=== PATIENT | female | born 1980 | race Caucasian/White ===

== ENCOUNTER 2019-06-10 17:30 | Emergency (ER) | payer BC, OTHER ==
--- NOTE | 2019-06-10 18:01 | PDOC ---
History of Present Illness - General Chief Complaint: Pain Stated Complaint: ABD PAIN Time Seen by Provider: 06/10/19 17:37 - History of Present Illness Initial Comments: 06/10/19 18:07 38f with pmh of c-sections presents to the ED with 2 hours of progressive onset LRQ abdominal pain associated with briefly feeling pale and diaphoretic. Pain is crampy 8/10 when walking, 5-6/10 at rest. No sexual relations for more than a year, LMP 2 weeks ago. Denies nausea, vomiting, chest pain, shortness of breath, constipation dysuria. Past History - Past Medical History Allergies/Adverse Reactions: Allergies Allergy/AdvReac Type Severity Reaction Status Date / Time amoxicillin [Amoxicillin] Allergy Intermediate Rash Verified 06/30/14 15:53 Home Medications: Ambulatory Orders NK [No Known Home Medication] 06/30/14 COPD: No - Reproductive History Is Patient Now?: No - Psycho Social/Smoking Cessation Hx Smoking History: Never smoked Hx Alcohol Use: Yes (OCCASIONAL) Drug/Substance Use Hx: No Substance Use Type: None Review of Systems - Review of Systems Able to Perform ROS?: Yes Is the patient limited Arabic proficient: No Constitutional: No: Symptoms Reported HEENTM: No: Symptoms Reported Respiratory: No: Symptoms reported Cardiac (ROS): No: Symptoms Reported ABD/GI: Yes: See HPI : Yes: Symptoms Reported Musculoskeletal: No: Symptoms Reported Integumentary: No: Symptoms Reported All Other Systems: Reviewed and Negative *Physical Exam - Vital Signs Last Vital Signs Temp Pulse Resp BP Pulse Ox 98.0 F 63 16 125/73 100 06/10/19 17:31 06/10/19 17:31 06/10/19 17:31 06/10/19 17:31 06/10/19 17:31 - Physical Exam General Appearance: Yes: Nourished, Appropriately Dressed. No: Apparent Distress HEENT: positive: EOMI, RAJAN, Normal ENT Inspection Cardiovascular: positive: Regular Rhythm, Regular Rate, S1, S2 Gastrointestinal/Abdominal: positive: Normal Bowel Sounds, Tender (diffusely), Flat, Soft Musculoskeletal: positive: Normal Inspection. negative: CVA Tenderness Extremity: positive: Normal Capillary Refill, Normal Inspection Integumentary: positive: Normal Color, Dry, Warm Neurologic: positive: Fully Oriented, Normal Mood/Affect ED Treatment Course - LABORATORY CBC & Chemistry Diagram: 10/21/19 18:00 06/10/19 18:00 Medical Decision Making - Medical Decision Making 06/10/19 18:42 38F with pmh of x2 presents with LRQ abdominal pain worse when walking. Considering appendicitis, ovarian torsion, ovarian cyst rupture. Low suspicion for PID tubular abscess or UTI. Will obtain ultrasound to r/o free fluid in pelvis or torsion. and reassess. 06/10/19 19:02 Patient signed out to Dr. De La Rosa Discharge - Discharge Information Problems reviewed: Yes Clinical Impression/Diagnosis: Abdominal pain Condition: Good - Follow up/Referral Referrals: Zuhair Rosario MD [Primary Care Provider] - - Patient Discharge Instructions - Post Discharge Activity
[2019-06-10 18:02] VITALS: BP 125/73; PULSE 63; TEMP 98; BMI 23.5
--- NOTE | 2019-06-10 18:26 | PDOC ---
Attending Attestation - Resident Resident Name: Guillaume Ford - ED Attending Attestation I have performed the following: I have examined & evaluated the patient, The case was reviewed & discussed with the resident, I agree w/resident's findings & plan, Exceptions are as noted - HPI HPI: 06/10/19 18:23 38 years old with no significant past medical history 1 2 children presents to the ED with diffuse abdominal discomfort earlier today followed by sudden onset right lower quadrant pain maximal 8 out of 10 now is mild when she stays still it is exacerbated by ambulation pain is mild intermittent exacerbated by movement alleviated somewhat by rest - Physicial Exam PE: 06/10/19 18:24 Vitals: Triage Vital signs reviewed General Appearance: No acute distress, well nourished well developed, Head: Atraumatic, Cardiac: Regular rate and rhythym, no murmurs, no rubs, no gallops, Lungs: Clear to auscultation bilateral, good air movement bilaterally, Abdomen: Soft, non distended, normal bowel sounds, right-sided abdominal tenderness palpation, no rebound no guarding Genitourinary: Mild right adnexal tenderness to palpation no masses no cervical motion tenderness Extremities: Full range of motion to all extremities, no cyanosis, clubbing, or edema Skin: Warm and dry, no rashes or lesions, no rash, no petechiae Psych: Normal mood, normal affect - Medical Decision Making 06/10/19 18:25 Right-sided abdominal discomfort with some adnexal pain on exam sudden onset but alleviated by rest differential diagnosis includes ruptured ovarian cyst less likely torsion given the patient is relatively comfortable at this time possibility of appendicitis as well We will check labs hydrate start with transvaginal ultrasound Dr. Crum to follow-up labs ultrasound reassess patient patient may require CAT scan for definitive diagnosis if no findings noted on ultrasound after reevaluation 06/11/19 14:52
[2019-06-10 18:30] LABS: BASO % 0.5 % (0-2.0); EOS % 1.1 % (0-4.5); HEMATOCRIT 39.5 % (32.4-45.2); HEMOGLOBIN 13.2 GM/dl (10.7-15.3); LYMPH % 20.2 % (8-40); MCH 30.9 pg (25.7-33.7); MCHC 33.4 g/dl (32.0-36.0); MEAN CELL VOLUME 92.5 fl (80-96); MEAN PLT VOLUME 7.6 fl (7.5-11.1); MONO % 5.8 % (3.8-10.2); NEUT % 72.4 % (42.8-82.8); PLATELET COUNT 300 K/MM3 (134-434); RBC 4.27 M/mm3 (3.60-5.2); RDW 12.2 % (11.6-15.6); WHITE BLOOD COUNT 5.8 K/mm3 (4.0-10.8)
[2019-06-10 18:44] LABS: ALBUMIN 4.4 g/dl (3.4-5.0); BILIRUBIN,TOTAL 0.9 mg/dl (0.2-1); CALCIUM 9.6 mg/dl (8.5-10); CREATININE 0.6 mg/dl (0.55-1.3); POTASSIUM 4.2 mmol/L (3.5-5.1)
[2019-06-10] MEDS ORDERED: SODIUM CHLORIDE 1,000 ML IV STA (19:03)
[2019-06-10 19:58] LABS: EPITHELIAL CELLS FEW /hpf
--- NOTE | 2019-06-10 20:03 | PDOC ---
*Physical Exam - Vital Signs Last Vital Signs Temp Pulse Resp BP Pulse Ox 98.0 F 63 16 125/73 100 06/10/19 17:31 06/10/19 17:31 06/10/19 17:31 06/10/19 17:31 06/10/19 17:31 ED Treatment Course - LABORATORY CBC & Chemistry Diagram: 06/10/19 18:00 06/10/19 18:00 - ADDITIONAL ORDERS Additional order review: Laboratory Results 06/10/19 06/10/19 06/10/19 18:00 17:50 17:50 Sodium 140 Potassium 4.2 Chloride 105 Carbon Dioxide 27 Anion Gap 8 BUN 20.0 H Creatinine 0.6 Est GFR (CKD-EPI)AfAm 135.91 Est GFR (CKD-EPI)NonAf 117.26 Random Glucose 97 Calcium 9.6 Total Bilirubin 0.9 AST 18 ALT 16 Alkaline Phosphatase 44 L Total Protein 7.0 Albumin 4.4 Urine Color Yellow Urine Appearance Clear Urine pH 7.0 Urine Protein 1+ H Urine Glucose (UA) Negative Urine Ketones Negative Urine Blood 2+ H Urine Nitrite Negative Urine Bilirubin Negative Urine Urobilinogen 0.2 Ur Leukocyte Esterase Negative Urine RBC 5-10 Urine WBC 2-5 Ur Transition Epith Cell Few Urine Bacteria Few POC Urine HCG, Qual Negative 06/10/19 18:00 RBC 4.27 MCV 92.5 MCHC 33.4 RDW 12.2 MPV 7.6 Neutrophils % 72.4 Lymphocytes % 20.2 Monocytes % 5.8 Eosinophils % 1.1 Basophils % 0.5 ED Progress Note - Progress Note Progress Note: Care of this patient received from Dr. Olivares Work-up of the patient's right lower quadrant abdominal pain included pelvic ultrasound (negative for ovarian torsion or other acute pathology). Since the patient had microscopic hematuria seen on urinalysis, renal stone protocol CT scan performed to rule out impacted kidney stone/hydronephrosis/ ureteral nephrosis or other acute process. Renal stone protocol CT negative for kidney stone/hydronephrosis or ureteronephrosis. No other acute pathology evident. Results discussed with the patient. She relates that she is feeling quite comfortable currently without recurrence of severe pain or other associated symptoms. The patient may have early enteritis and as such was recommended to keep to a light diet and advance as tolerated. She should follow-up with her own doctor within the next few days and return to the ER if she has recurrence of severe abdominal pain or develops fever/vomiting Discharge - Discharge Information Problems reviewed: Yes Clinical Impression/Diagnosis: Abdominal pain Qualifiers: Abdominal location: right lower quadrant Qualified Code(s): R10.31 - Right lower quadrant pain Condition: Good Disposition: HOME - Follow up/Referral Referrals: Zuhair Rosario MD [Primary Care Provider] - - Patient Discharge Instructions Patient Printed Discharge Instructions: DI for Abdominal Pain-Adult Additional Instructions: Light diet, advance as tolerated Return to ER if you have persistent severe pain or develop fever/vomiting Follow-up with your doctor within the next 2 to 3 days - Post Discharge Activity
== END 2019-06-10 22:08 | disposition home or self-care (01) ==
LOC: FER 17:30
PROC: 3E0337Z Introduction of Electrolytic and Water Balance Substance into Peripheral Vein, Percutaneous Approach (ICD-10-PCS; principal; 2019-06-10)
DX: R10.31 Right lower quadrant pain (principal); Z88.8 Allergy status to other drugs, medicaments and biological substances
CPT/HCPCS: 36415; 74176-TC; 76856-TC; 80053; 81003; 81015; 81025; 85025; 87086; 99283-25; J7030

== ENCOUNTER 2020-07-22 15:14 | Emergency (ER) | payer BC ==
[2020-07-22 15:26] VITALS: BP 130/79; PULSE 75; TEMP 99.1; BMI 22.0
== END 2020-07-22 15:51 | disposition home or self-care (01) ==
LOC: FER 15:14
DX: M94.0 Chondrocostal junction syndrome [Tietze] (principal)
CPT/HCPCS: 93005; 99283-25